=== PATIENT | male | born 1965 | race Caucasian/White ===

== ENCOUNTER 2020-07-02 17:51 | Emergency (ER) | payer BC ==
[2020-07-02 18:05] VITALS: RESP 18; TEMP 98
[2020-07-02] MEDS ORDERED: LIDOCAINE 1% INJ 10MG/ML (20 ML MDV) SQ ONE (18:17)
[2020-07-02] MEDS ORDERED: DIPH,PERTUS(ACELL)TETVAC-LF 0.5 ML VIAL IM ONE (18:17)
--- NOTE | 2020-07-02 18:22 | ED ---
Wound/Laceration HPI - General Chief Complaint: Wound/Laceration Stated Complaint: Laceration R Leg Time Seen by Provider: 07/02/20 18:05 Source: patient, RN notes reviewed Mode of arrival: ambulatory Limitations: no limitations - History of Present Illness Initial Comments: Patient is a 55-year-old male that presents to emergency department with a right quad multi-lacerations. He noted that he got a new ice auger they pulled the trigger and it cut him through his pants. He did have his leg wrapped in a towel with pressure to stop bleeding. She denied any pain distal a bit of a burning sensation. He stated that he was not up-to-date with his tetanus and has been about 15 years. He denied any loss of consciousness nausea vomiting diarrhea constipation fever fatigue chills loss of sensation. - Related Data Previous Rx's Medication Instructions Recorded Cephalexin [Keflex] 500 mg PO Q8HR #21 cap 07/02/20 Allergies Allergy/AdvReac Type Severity Reaction Status Date / Time No Known Allergies Allergy Verified 07/02/20 18:03 Review of Systems ROS Statement: Those systems with pertinent positive or pertinent negative responses have been documented in the HPI. ROS Other: All systems not noted in ROS Statement are negative. Past Medical History Past Medical History: No Reported History History of Any Multi-Drug Resistant Organisms: None Reported Past Surgical History: Tonsillectomy Smoking Status: Current every day smoker Past Alcohol Use History: Occasional Past Drug Use History: None Reported General Exam Limitations: no limitations General appearance: alert, in no apparent distress Head exam: Present: atraumatic, normocephalic, normal inspection Eye exam: Present: normal appearance, PERRL, EOMI. Absent: scleral icterus, conjunctival injection, periorbital swelling ENT exam: Present: normal exam, mucous membranes moist Neck exam: Present: normal inspection. Absent: tenderness, meningismus, lymphadenopathy Respiratory exam: Present: normal lung sounds bilaterally. Absent: respiratory distress, wheezes, rales, rhonchi, stridor Cardiovascular Exam: Present: regular rate, normal rhythm, normal heart sounds. Absent: systolic murmur, diastolic murmur, rubs, gallop, clicks GI/Abdominal exam: Present: soft, normal bowel sounds. Absent: distended, tenderness, guarding, rebound, rigid Extremities exam: Present: normal inspection, full ROM, normal capillary refill. Absent: tenderness, pedal edema, joint swelling, calf tenderness Neurological exam: Present: alert, oriented X3, CN II-XII intact Psychiatric exam: Present: normal affect, normal mood Skin exam: Present: warm, dry, intact, normal color, other (Several lacerations to the lateral aspect of the right quadricep, largest on is approximately 5-6 inches in length full-thickness. With several smaller ones decreasing in size.). Absent: rash Course Vital Signs 07/02/20 17:59 Temperature 98.0 F Pulse Rate 85 Respiratory 18 Rate Blood Pressure 125/83 O2 Sat by Pulse 97 Oximetry Procedures - Laceration Laceration #1 Consent Obtained: verbal consent Indication: laceration Site: lower extremity (Lateral right quad) Size (cm): 11 Description: linear Depth: simple, single layer Anesthetic Used: lidocaine 1% Anesthesia Technique: local infiltration Amount (mls): 10 Pre-repair: irrigated extensively, deep structures intact Type of Sutures: nylon, vicryl (4 stitches for fascial layer) Size of Sutures: 4-0 Number of Sutures: 12 Technique: simple, interrupted, horizontal mattress Complications: bleeding Patient Tolerated Procedure: well, no complications Laceration #2 Consent Obtained: verbal consent Indication: laceration Site: lower extremity (Lateral right quad) Size (cm): 9 Description: linear Depth: simple, single layer Anesthetic Used: lidocaine 1% Anesthesia Technique: local infiltration Pre-repair: irrigated extensively Type of Sutures: nylon Size of Sutures: 4-0 Number of Sutures: 3 Technique: simple, interrupted Complications: bleeding Patient Tolerated Procedure: well, no complications Laceration #3 Consent Obtained: verbal consent Indication: laceration Site: lower extremity (Right lateral quadrant) Description: linear Depth: simple, single layer Pre-repair: irrigated extensively Type of Sutures: other (Steri-Strips) Complications: bleeding Patient Tolerated Procedure: well, no complications Medical Decision Making - Medical Decision Making 55-year-old male with lateral right quad lacerations. Tetanus immunization ordered. Patient declined needed for pain medication as it was tolerable. Lidocaine ordered for wound closing. Patient tolerated irrigation, lidocaine, suturing, Steri-Stripped and wound care well. Case discussed with Dr. Bolivar, was decided the patient could discharge home. Disposition Clinical Impression: Laceration Disposition: HOME SELF-CARE Condition: Stable Instructions (If sedation given, give patient instructions): Care For Your Stitches (ED), Laceration (ED), Acute Wound Care (ED) Additional Instructions: Please return to the Emergency Department if symptoms worsen or any other concerns. Follow-up with primary care in 2-4 days. Take anabiotic as prescribed until complete. Antibiotic prescription sent to pharmacy. Do not shower for at least 24 hours, if he can get Tegaderm to cover wound may shower after 24 hours. Return in 7-10 days for suture removal. Take [id number] pain medications as needed for conservative management. Prescriptions: Cephalexin [Keflex] 500 mg PO Q8HR #21 cap Is patient prescribed a controlled substance at d/c from ED?: No Referrals: None,Stated [REFERRING] - 1-2 days Time of Disposition: 20:02
[2020-07-02] MEDS ORDERED: MORPHINE SULFATE 2 MG/ML SYRINGE IM ONE (18:42)
[2020-07-02 20:10] VITALS: BP 132/86; PULSE 80
== END 2020-07-02 20:10 | disposition home or self-care (01) ==
LOC: EC 17:51
DX: S71.111A Laceration without foreign body, right thigh, initial encounter (principal); F17.200 Nicotine dependence, unspecified, uncomplicated; Z90.09 Acquired absence of other part of head and neck; W27.8XXA Contact with other nonpowered hand tool, initial encounter; Z23 Encounter for immunization
CPT/HCPCS: 90715; 99282; 12005; 90471; 96372; J2001; J2270